=== PATIENT | female | born 1995 | race Two or more races ===

== ENCOUNTER 2018-10-16 20:52 | Emergency (ER) | payer OTHER ==
[~2018-10-16] VITALS: Ht 162.6 cm; Wt 73.9 kg
[2018-10-16] MEDS ORDERED: normal saline 1000ML IV soln IVB ONE (21:35)
[2018-10-16] MEDS ORDERED: ondansetron/PF 4mg/2ml inj IV ONE ×2 (21:35→23:25)
[2018-10-16] MEDS: morphine 4 MG/ML inj SYRINge IV PRN ×2 (21:46→23:29)
[2018-10-16 21:49] LABS: ALANINE AMINOTRANSFERASE 18 U/L (12-78); ALKALINE PHOSPHATASE 74 IU/L (46-116); ANION GAP 11 (8-16); ASPARTATE AMINO TRANSFERASE 13 U/L (10-37); BILIRUBIN,TOTAL 0.4 MG/DL (0.1-1.0); BLOOD UREA NITROGEN 8 MG/DL (7-18); BUN/CREATININE RATIO 10.5 (6.6-38.0); CALCIUM 8.8 MG/DL (8.5-10.1); CHLORIDE 101 MMOL/L (99-107); CREATININE 0.76 MG/DL (0.40-0.90); GLUCOSE 125 MG/DL (70-104); LIPASE 82 U/L (73-393); POTASSIUM 3.2 MMOL/L (3.5-5.1); SODIUM 139 MMOL/L (135-145); TOTAL CARBON DIOXIDE 26.6 MMOL/L (24-32); TOTAL PROTEIN 8.1 G/DL (6.4-8.2); eGFR > 90 ML/MIN
[2018-10-16 21:52] LABS: INR 1.1 INR; PROTHROMBIN TIME 11.1 SECONDS (9.0-12.0)
[2018-10-16 22:03] LABS: HCG SERUM QL NEGATIVE
[2018-10-16 22:14] LABS: MEAN CORPUSCULAR HGB CONC 28.8 % (33.0-36.5); MEAN CORPUSCULAR VOLUME 55.4 FL (78-98); MEAN PLATELET VOLUME 7.5 FL (7.4-10.4); PLATELET COUNT 389 X10'3 (140-440); RED BLOOD COUNT 3.97 X10'6 (4.20-5.60); RED CELL DISTRIBUTION WIDTH 21.5 % (11.5-14.5); WHITE BLOOD COUNT 15.9 X10'3 (4.5-11.0)
[2018-10-16 22:26] LABS: HEMOGLOBIN 6.4 g/dl (12.0-16.0)
[2018-10-16 22:44] LABS: ANISOCYTOSIS 3+; ELLIPTOCYTES 1+; MICROCYTOSIS 3+; PLATELET ESTIMATE NORMAL; POLYCHROMASIA 1+; TEAR DROP CELLS FEW; TOTAL CELLS COUNTED 100
[2018-10-16 22:45] LABS: POIKILOCYTOSIS FEW; TARGET CELLS FEW
[2018-10-16] MEDS ORDERED: acetaminophen 325mg tablet PO ONE (22:50)
[2018-10-16 23:05] LABS: URINE HCG NEGATIVE (NEG)
[2018-10-16 23:14] LABS: CLARITY,URINE SLIGHTLY CLOUDY (Clear); COLOR,URINE YELLOW (Yellow); GLUCOSE, URINE NEGATIVE (Neg); KETONES,URINE NEGATIVE (Neg); LEUKOCYTE ESTERASE ,URINE NEGATIVE (Neg); NITRITES, URINE POSITIVE (Neg); OCCULT BLOOD,URINE NEGATIVE (Neg); PH,URINE 5.5 (4.8-8.0); PROTEIN,URINE NEGATIVE (Neg); UROBILINOGEN,URINE 0.2 E.U/dL (0.2-1.0)
[2018-10-16 23:27] LABS: UA COLLECTION TYPE FOLEY CATH
[2018-10-16 23:28] LABS: BACTERIA,URINE 4+ /HPF (Neg); RBC,URINE NONE SEEN /HPF (0-2); SQUAMOUS EPITHELIAL CELL,UR FEW /LPF (FEW); WBC,URINE 0-4 /HPF (0-4)
[2018-10-16] MEDS ORDERED: iohexol 300mg/ml 100ml inj. ONE (23:29)
[2018-10-17] MEDS ORDERED: piperacillin/tazo 3.375gm/50ml 50 ML IV ONE (00:25)
[2018-10-17] MEDS ORDERED: normal saline 1000ML IV soln IVB ONE (00:30)
[2018-10-17] MEDS ORDERED: acetaminophen 325mg tablet PO ONE (01:05)
[2018-10-17 01:35] VITALS: BP 116/56
[2018-10-17 01:50] VITALS: BP 115/54
== END 2018-10-17 02:02 | disposition short-term general hospital (02) ==
LOC: ER 20:53
DX: A41.9 Sepsis, unspecified organism (principal); T19.2XXA Foreign body in vulva and vagina, initial encounter; N70.93 Salpingitis and oophoritis, unspecified; D64.9 Anemia, unspecified; R10.84 Generalized abdominal pain; R11.10 Vomiting, unspecified; Y92.9 Unspecified place or not applicable
CPT/HCPCS: 36415; 36430; 74177; 80053; 81001; 81025; 83605; 83690; 84145; 84703; 85025; 85610; 86885; 86900; 86901; 86920; 87040; 87070; 87077; 87088; 87186; 87502; 87503; 96361; 96365; 96375; 96376; 99291; J2270; J2405; J2543; J7030; P9016; Q9967

== ENCOUNTER 2025-09-23 17:40 | Emergency (ER) | payer BC, OTHER ==
[~2025-09-23] VITALS: Ht 160 cm; Wt 90.9 kg
--- NOTE | 2025-09-23 18:46 | Physician Documentation ---
History of Present Illness ~ Chief Complaint: Bite-animal Stated Complaint: DOG BITE Time Seen by MD: 18:06 Primary Medical Doctor: NONE HPI This is a 30-year-old male who presents with a laceration to her posterior wrist after she attempted to break up a fight between two dogs, patient reports dogs are known to her and fully vaccinated. Patient reports unknown last Tdap. [place] ent reports no other acute symptoms or concerns. Tetanus within 5 years?: No Medication Reconciliation Allergies: Coded Allergies: No Known Allergies (Unverified , 09/23/25) Scheduled Amox Tr/Potassium Clavulanate (Augmentin 135-125 Tablet), 1 TAB PO Q12H Past Medical History Past Medical History: No Pertinent History Past Surgical History: noncontributory Lives In: Home Review of Systems ROS As stated above in the HPI, otherwise all systems are reviewed and negative. Physical Exam Vital Signs: Temperature: 98.4, Source: Temporal, Heart Rate: 95, Respiratory Rate: 18, BP: 126/85, Pulse Oximetry: 100, Weight: 90.910 Oxygen Flow Rate: 0 Physical Exam VITALS: Reviewed and as above. GENERAL: Alert, nontoxic appearing, no apparent distress. RESPIRATORY: No increased work of breathing, no respiratory distress, speaking in full clear sentences CV: Brisk capillary refill to left fingers SKIN: 4 cm laceration to anterior left wrist no evidence of tendon or deep structure involvement, no evidence of retained foreign body. 4 cm laceration to posterior wrist no evidence of tendon or deep structure involvement, no evidence of retained foreign body NEURO: Patient is intact to left fingers Procedures Laceration/Wound Repair Laceration/Wound Repair #1: Location: Posterior left wrist Length (cm): 4 Anesthesia: Lidocaine w/ Epi Volume Anesthetic (mls): 8 Prep: irrigated by nurse Margins: revised Foreign Body: not identified Repaired: skin Wound Repaired With: sutures Suture Size/Type: 4-0 Number of Superficial Sutures: 5 Layer Closure?: No Dressing Applied: simple, bacitracin, non-adherent Splint Applied?: No Sling Applied?: No Tolerated Procedure Well?: yes, no complications Procedure Note Wound was loosely approximated without complication Laceration/Wound Repair #2: Location: Anterior left wrist Length (cm): 4 Anesthesia: Lidocaine w/ Epi Volume Anesthetic (mls): 6 Prep: irrigated by nurse Margins: revised Foreign Body: not identified Repaired: skin Wound Repaired With: sutures Suture Size/Type: 4-0 Number of Superficial Sutures: 4 Layer Closure?: No Dressing Applied: simple, bacitracin, non-adherent Splint Applied?: No Sling Applied?: No Tolerated Procedure Well?: yes, no complications Procedure Note Wound was loosely approximated without complication Progress Results/Orders Results/Orders Orders - PRISCILA ALVAREZ Laceration/I&D Tray Set Up (09/23/25 18:57) Wound Care Orders (09/23/25 18:57) Completed Orders - PRISCILA ALVAREZ Lidocaine 1% W/Epi 1:100,000 (Xylocaine (09/23/25 19:00) Tetanus/Pertuss/Diph Acell/Pf (Boostrix (09/23/25 19:00) Amox Tr/Potassium Clavulanate (Augmentin (09/23/25 20:05) Medications Received in ER Medications (Trade) Dose Ordered Sig/Walter Route PRN Reason Start Time Stop Time Status Last Admin Dose Admin (Xylocaine 1%-EPI 1:100,000) Physician to administ... ONCE ONCE IJ 09/23/25 19:00 09/23/25 19:01 DC 09/23/25 19:16 20 ML (Boostrix vaccine syringe) 0.5 ml ONCE ONCE IMVAC 09/23/25 19:00 09/23/25 19:01 DC 09/23/25 19:22 0.5 ML (Augmentin 875-125mg tablet) 1 tab ONCE ONCE PO 09/23/25 20:05 09/23/25 20:06 DC 09/23/25 20:13 1 TAB Vital Signs 09/23/25 09/23/25 17:41 20:17 Temp 98.4 98.6 Pulse 95 90 Resp 18 18 B/P (MAP) 126/85 124/80 Pulse Ox 100 99 O2 Flow Rate 0 Medical Decision Making Additional information obtaine: N/A Findings This is a 30-year-old female presented with lacerations to her left wrist after a dog bite caused by breaking up a dog fight between two dogs that she knows, physical exam was reassuring with lacerations to the anterior and posterior left wrist each a proximally 4 cm in length without involvement of deeper structures including tendons, additionally reassuring no evidence of retained foreign body and limb is neurovascularly intact. Patient is otherwise well-appearing with remainder of physical exam benign. Due to length of lacerations loose approximation was indicated and wounds were successfully loosely approximated without complication. Rabies prophylaxis not indicated due to dogs known to the patient and reported to be up-to-date on all vaccinations. Tdap was updated. Patient was provided 1st dose of oral antibiotic and discharge on course of oral antibiotics. Patient patient well-appearing and appropriate for outpatient follow up. Patient provided home care instructions return to care precautions, and follow up instructions which she verbalized understanding of. Differential Dx:Considerations: Include: Abrasion, Cellulitis, Contusion, Fracture, Hematoma, Laceration, Neurovascular injury, Retained foreign body Departure Time of Disposition: 20:05 Disposition: 01 HOME / SELF CARE / HOMELESS Impression: Primary Impression: Dog bite Qualified Codes: W54.0XXA - Bitten by dog, initial encounter Discharge Instructions: Animal Bite, Adult Additional Instructions: Keep the area clean dry and covered, you may shower after 24 hours though do not soak or submerge the wound. Please watch the area for signs of infection such as increased redness or swelling or purulent drainage. Please take antibiotics as prescribed. You may use ibuprofen and or Tylenol as needed for pain as directed by [id number] packaging. Please return to your choice of medical provider for wound recheck and possible suture removal in 10 days, you may return here, primary care, urgent care or another emergency department. Please follow up with your primary care provider in the next few days. Please return to the emergency department for any new or worsening concerning symptoms. Referrals: NO PRIMARY CARE PROVIDER (PCP) Prescriptions Amox Tr/Potassium Clavulanate (Augmentin 875-125 Tablet) 1 Each Tablet 1 TAB PO Q12H for 7 Days, #14 TAB Prov: PRISCILA ALVAREZ 09/23/25 Education Educated: Patient Educated regarding: diagnosis, treatment, prognosis, need for follow up Signature Scribe Signature: No scribe Attestation: The note accurately reflects work and decisions made by me.MEGAN Mann 09/24/25 00:55 PRISCILA ALVAREZ Sep 23, 2025 18:46
[2025-09-23] MEDS: LIDOcaine 1% W/epiNEPHrine 1:100,000 20ml vial IJ ONE (19:16)
[2025-09-23] MEDS: TETanus/Pertussis (Acell)/Diphther VAC/PF (Tdap-Adult) 0.5ml syringe IMVAC ONE (19:22)
[2025-09-23] MEDS ORDERED: AMOX-117 PO (20:06)
[2025-09-23] MEDS: amox tr/potassium clavulanate 875/125mg TAB PO ONE (20:13)
[2025-09-23 20:17] VITALS: BP 124/80; PULSE 90; RESP 18; TEMP 98.6; O2SAT 99
== END 2025-09-23 20:18 | disposition home or self-care (01) ==
LOC: ER 17:41
DX: S61.512A Laceration without foreign body of left wrist, initial encounter (principal); W54.0XXA Bitten by dog, initial encounter; Y93.89 Activity, other specified; Y92.89 Other specified places as the place of occurrence of the external cause; Y99.8 Other external cause status
CPT/HCPCS: 12004; 90471; 90715; 99283; J3490; A6449